=== PATIENT | male | born 1995 | race Caucasian/White ===

== ENCOUNTER 2024-05-04 01:15 | Emergency (ER) | payer OTHER ==
[~2024-05-04] VITALS: Ht 180.3 cm; Wt 116.1 kg
[2024-05-04 01:35] VITALS: BP 144/87; PULSE 108; RESP 16; TEMP 98.4; O2SAT 99
[2024-05-04] MEDS: KETOROLAC 60 MG/2 ML VIAL IM ONE (02:50)
[2024-05-04] MEDS: BACITRACIN OINT 500 UNITS/GM PKT TP ONE (03:15)
== END 2024-05-04 03:54 ==
LOC: MED 01:15
DX: S92.352A Displaced fracture of fifth metatarsal bone, left foot, initial encounter for closed fracture (principal); S46.912A Strain of unspecified muscle, fascia and tendon at shoulder and upper arm level, left arm, initial encounter; S30.811A Abrasion of abdominal wall, initial encounter; S80.211A Abrasion, right knee, initial encounter; S50.311A Abrasion of right elbow, initial encounter; V29.99XA Rider (driver) (passenger) of other motorcycle injured in unspecified traffic accident, initial encounter; Y93.89 Activity, other specified; Y92.410 Unspecified street and highway as the place of occurrence of the external cause; Y99.8 Other external cause status
CPT/HCPCS: 71045; 73630; 96372; 99284; J1885